=== PATIENT | female | born 1995 | race Caucasian/White ===

== ENCOUNTER 2018-03-06 10:21 | Emergency (ER) | payer BC ==
[~2018-03-06] VITALS: Ht 162.6 cm; Wt 65.8 kg
[2018-03-06] MEDS ORDERED: JUNEL FE 24 TA1 EACH PO (10:32)
[2018-03-06 11:00] LABS: ABSOLUTE LYMPHOCYTES 1.6 thou/uL (0.8-5.3); ABSOLUTE MONOCYTES 0.5 thou/uL (0.0-1.2); ABSOLUTE NEUTROPHILS 5.8 thou/uL (1.6-8.1); BASOPHILS 0.4 %; EOSINOPHILS 0.5 %; HEMATOCRIT 43.2 % (37.0-47.0); HEMOGLOBIN 14.9 gm/dL (12.0-15.0); LYMPHOCYTES 20.1 %; MCH 29.7 pg (26.0-34.0); MCHC 34.4 g/dL (28.0-37.0); MCV 86.3 fL (80.0-100.0); MONOCYTES 5.8 %; MPV 8.2 fl. (7.2-11.1); NUCLEATED RBCS 0 /100WBC; PLATELET COUNT* 244 thou/uL (150-400); POLYS 73.2 %; RBC 5.01 mil/uL (4.20-5.00); RDW-CV 12.1 % (10.5-14.5)
[2018-03-06 11:08] LABS: CALCIUM 9.3 mg/dL (8.5-10.1); CREATININE 0.8 mg/dL (0.6-1.3); POTASSIUM 3.6 mmol/L (3.5-5.1)
[2018-03-06 11:11] LABS: URINE BILIRUBIN NEGATIVE (Negative); URINE BLOOD NEGATIVE (Negative); URINE CLARITY CLEAR; URINE COLOR YELLOW; URINE GLUCOSE-RANDOM NEGATIVE (Negative); URINE KETONES NEGATIVE (Negative); URINE LEUKOCYTES-REFLEX NEGATIVE (Negative); URINE NITRITE-REFLEX NEGATIVE (Negative); URINE PROTEIN NEGATIVE (Negative); URINE UROBILINOGEN 0.2 E.U./dl (0.2-1.0)
[2018-03-06 11:13] LABS: ALBUMIN 4.3 g/dL (3.4-5.0); TOTAL BILIRUBIN 0.9 mg/dL (<0.1-1.0); TOTAL PROTEIN 7.7 g/dL (6.4-8.2)
[2018-03-06] MEDS ORDERED: NABUMETONE 750750 M1 PO (12:38)
[2018-03-06] MEDS ORDERED: ROBAXIN 750 MG750 M1 PO (12:38)
[2018-03-06 12:57] VITALS: BP 106/71
== END 2018-03-06 13:00 | disposition home or self-care (01) ==
LOC: M.ERS 10:21
PROVIDERS: Nurse Practitioner Family
DX: R10.31 Right lower quadrant pain (principal); R92.2 Inconclusive mammogram

== ENCOUNTER → 2018-03-16 | Outpatient (CLI) | payer BC ==
[~2018-03-16] MED LIST: JUNEL FE 24 TA1 EACH PO; NABUMETONE 750750 M1 PO; ROBAXIN 750 MG750 M1 PO
== END ==
LOC: M.ULTRA 14:28
DX: N63.10 Unspecified lump in the right breast, unspecified quadrant (principal); Z80.3 Family history of malignant neoplasm of breast

== ENCOUNTER → 2018-03-27 | Outpatient (CLI) | payer BC ==
--- NOTE | 2018-03-30 13:08 | PATH ---
[address] [address] PATHOLOGY RPT PROCEDURE Name: ROSEMARIE PACHECO Room: [facility] Jerod#: [id number] Admission: 03/27/18 Date of : [birth year] Discharge: Report #: [id number] Path Case #: [id number] [facility] Accession Number: [id number] . 01 Material submitted: . RIGHT BREAST TISSUE . 01 Clinical history: . 2.8 x 2.9 x 1.3 cm mass; right breast mass inferior, 7:00, 2.0 cm from nipple . 02 Diagnosis: Right breast mass, inferior, 7:00, 2.0 cm from nipple: - Fibroadenoma. See comment. . (JYOTHI:jake; 03/29/18) [facility]/03/29/2018 . 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 Reviewed with Dr. Jasson Monsivais who agrees with the diagnosis. . (JYOTHI:mmadrianne; 03/29/18) . 02 Electronically signed: . Chris Moser MD, Pathologist NPI- [id number] . 01 Gross description: . Received in formalin labeled "Rosemarie Pacheco, right breast mass, inferior, 7:00," and additionally labeled on the requisition as "2.0 cm from nipple," are multiple needle cores of yellow-alatorre fibrofatty tissue measuring 2.0 x 0.8 x 0.2 cm in aggregate dimensions. The tissue submitted in its entirety in cassettes A1 through A3. The cold ischemic time is 6 minutes. The total formalin fixation time is 33 hours and 14 minutes. (TSD; 03/27/2018) TOB/TOB . 02 Pathologist provided ICD-10: D24.1 . 02 CPT . 539844 Specimen Comment: A courtesy copy of this report has been sent to Specimen Comment: [phone], , . Specimen Comment: Report sent to ,DR ESPINO / DR CARTY Specimen Comment: A duplicate report has [place] [address] PATHOLOGY RPT PROCEDURE Name: ROSEMARIE PACHECO Room: [facility]#: [id number] Admission: 03/27/18 Date of : [birth year] Discharge: Report #: [id number] Path Case #: [id number] updates. Performed at: 01 [facility] [place] [address], [place] [id number] MD Sharif Pack MD Phone: [phone] Performed at: 02 [facility] [place] [facility] [address], [place] [id number] MD Chris Moser MD Phone: [phone]
--- NOTE | 2018-03-30 14:08 | PATH ---
[address] [address] PATHOLOGY RPT PROCEDURE Name: ROSEMARIE PACHECO [id number] Admission: 03/27/18 Date of : [birth year] Discharge: Report #: [id number] Path Case #: [id number] [facility] Accession Number: [id number] . 01 Material submitted: . RIGHT BREAST BIOPSY . 01 Clinical history: . 3.1 x 1.2 x 2.5 cm mass, right breast mass superior, 8 o'clock, 1 cm from nipple. . 02 Diagnosis: Right breast mass, superior, 8 o'clock, 1 cm from nipple, image-guided core biopsies: - Fibroadenoma with focal calcification. - See comment. . (JYOTHI:vfredi;03/29/2018) [facility]/03/29/2018 . 02 Comment: Essentially all of the submitted tissues represent fibroadenoma. Reviewed with Dr. Jasson Monsivais who agrees with the diagnosis. . (JYOTHI:vjm;03/29/2018) . 02 Electronically signed: . Chris Moser MD, Pathologist NPI- [id number] . 01 Gross description: . Received in formalin labeled "Rosemarie Pacheco, right breast BX, superior 8:00 1 cm FN," are multiple needle cores of yellow-alatorre fibrofatty tissue measuring 1.6 x 0.7 x 0.2 cm in aggregate dimensions. The tissue submitted in its entirety in cassette A1 through A3. The cold ischemic time is 6 minutes. The total formalin fixation time is approximately 33 hours. (TSD; 03/27/2018) TOB/TOB . 02 Pathologist provided ICD-10: D24.1 . 02 CPT . [id number] Specimen Comment: A courtesy copy of this report has been sent to Specimen Comment: [phone], , . Specimen Comment: Report sent to ,DR ESPINO / [place] [address] PATHOLOGY RPT PROCEDURE Name: ROSEMARIE PACHECO Room: [facility]#: [id number] Admission: 03/27/18 Date of : [birth year] Discharge: Report #: [id number] Path Case #: [id number] Specimen Comment: A duplicate report has been generated due to demographic updates. Performed at: 01 [facility] [place] [address] [facility] [address], [place], [place] [id number] MD Sharif Pack MD Phone: [phone] Performed at: 02 [facility] [place] [address] [address], [place], [place] [id number] MD Chris Moser MD Phone: [phone]
== END ==
LOC: M.ULTRA 08:23
DX: D24.1 Benign neoplasm of right breast (principal); Z79.899 Other long term (current) drug therapy